=== PATIENT | male | born 1975 ===

== ENCOUNTER 2018-03-10 20:17 | Emergency (ER) | payer SELFPAY ==
[2018-03-10 20:26] VITALS: BP 117/68; PULSE 74; TEMP 98.2; O2SAT 96
--- NOTE | 2018-03-10 21:34 | C.PDOC ---
History Of Present Illness 42 year old male presents to the ED c/o right knee pain. Patient states he had left sided sciatica with bad pain that now almost resolved. Patient states the way he was walking he put too much pressure on his right side. Patient now c/o right sided knee pain. Patient denies other injury, fall, trauma, weakness, numbness. Time Seen by Provider: 03/10/18 20:37 Chief Complaint (Nursing): Lower Extremity Problem/Injury History Per: Patient History/Exam Limitations: no limitations Onset/Duration Of Symptoms: Days Current Symptoms Are (Timing): Still Present Recent travel outside of the [place]: No Additional History Per: Patient - Knee Description Of Injury: Other Currently Unable To: Bear Weight Past Medical History Reviewed: Historical Data, Nursing Documentation, Vital Signs Vital Signs: Last Vital Signs Temp 98.2 F 03/10/18 20:24 Pulse 74 03/10/18 20:24 Resp 18 03/10/18 20:24 BP 117/68 03/10/18 20:24 Pulse Ox 96 03/10/18 21:43 - Medical History PMH: No Chronic Diseases Surgical History: No Surg Hx Family History: States: Unknown Family Hx - Social History Hx Alcohol Use: No Hx Substance Use: No Review Of Systems Constitutional: Negative for: Fever, Chills Cardiovascular: Negative for: Chest Pain Respiratory: Negative for: Shortness of Breath Gastrointestinal: Negative for: Abdominal Pain Musculoskeletal: Positive for: Leg Pain Skin: Negative for: Rash Neurological: Negative for: Weakness, Numbness Physical Exam - Physical Exam Appears: Non-toxic, No Acute Distress Skin: Normal Color, Warm, Dry Head: Atraumatic, Normacephalic Eye(s): bilateral: Normal Inspection Nose: No Discharge Oral Mucosa: Moist Neck: Normal ROM, Supple Chest: Symmetrical Cardiovascular: Rhythm Regular, No Murmur Respiratory: Normal Breath Sounds, No Rales, No Rhonchi, No Wheezing Extremity: Normal ROM, Tenderness (medial aspect right knee. Pain with weight bearing), Capillary Refill (< 2 seconds), No Deformity, No Swelling, Other (no erythema or warmth) Pulses: Left Dorsalis Pedis: Normal, Right Dorsalis Pedis: Normal Neurological/Psych: Oriented x3, Normal Motor, Normal Sensation Gait: Steady ED Course And Treatment O2 Sat by Pulse Oximetry: 96 (On RA) Pulse Ox Interpretation: Normal - Other Rad right knee xray X-Ray: Interpreted by Me Interpretation: no fx, no lesions Medical Decision Making Medical Decision Making: Plan: * Right knee X-Ray * Knee brace * crutches * Ortho referral Disposition - Disposition Referrals: Cedrick Valerio III, MD [Staff Provider] - Disposition: HOME/ ROUTINE Disposition Time: 21:41 Condition: STABLE Additional Instructions: Follow up with Orthopedist within 2-3 days. Return to ED if feel worse. Prescriptions: Ibuprofen [Motrin Tab] 600 mg PO Q8 #30 tab Instructions: Knee Immobilizer (DC) Forms: [employer] (Latvian) Print Language: AMHARIC - Clinical Impression Clinical Impression: Knee pain, right - PA / MANAGER GAME / Resident Statement MD/DO has reviewed & agrees with the documentation as recorded. - Scribe Statement The provider has reviewed the documentation as recorded by the Scribe Giuliano Bonilla All medical record entries made by the Scribe were at my direction and personally dictated by me. I have reviewed the chart and agree that the record accurately reflects my personal performance of the history, physical exam, medical decision making, and the department course for this patient. I have also personally directed, reviewed, and agree with the discharge instructions and disposition.
[2018-03-10 22:40] VITALS: RESP 20
--- NOTE | 2018-03-11 07:06 | RAD ---
PROCEDURE: Right Knee Radiographs. HISTORY: atraumatic pain COMPARISON: None. FINDINGS: BONES: No acute fracture or destructive bony lesion identified. JOINTS: Normal. No osteoarthritis. JOINT EFFUSION: Trace suprapatellar bursa effusion identified. OTHER FINDINGS: None. IMPRESSION: No acute fracture or dislocation. Trace suprapatellar bursa effusion noted.
== END 2018-03-10 22:39 | disposition home or self-care (01) ==
LOC: C.ER 20:17
DX: M25.561 Pain in right knee (principal)